=== PATIENT | female | born 1995 | race Caucasian/White ===

== ENCOUNTER 2016-05-18 22:01 | Outpatient (CLI) | payer OTHER ==
[~2016-05-18] VITALS: Ht 157.5 cm; Wt 68.9 kg
[2016-05-18 22:13] VITALS: Ht 157.5 cm; Wt 68.9 kg
[2016-05-18 22:14] VITALS: BP 117/70; PULSE 76; RESP 18
[2016-05-18] MEDS ORDERED: PREN1TAB31 PO (22:26)
--- NOTE | 2016-05-19 01:17 | HP ---
Date/Time of Note Date/Time of Note DATE: 05/19/16 TIME: 01:12 OB - History Hx of Present Free Text/Dictation OB Triage 21yo G1 at 39+4 presenting to triage with c/o painful UCs since AM. Pt reports normal FM, denies LOF or VB. Estimated Due Date: May 21, 2016 : 1 Care: Good Care Past Family/Social History * Past Medical, Surgical, Family and Obstetric Histories reviewed from chart. OB Admission Exam Vital Signs Vital Signs Vital Signs Date Time Temp Pulse Resp B/P Pulse Ox O2 Delivery O2 Flow Rate FiO2 05/18/16 22:14 98.9 76 18 117/70 Room Air Physical Exam Cervical Dilatation: 2cm Effacement: 50% Station: -2 Membranes: Intact Heart Rate: 130's Accelerations: Accelerations Present Decelerations: No Decelerations Varibility: Moderate Contractions on Admission: < 5 Minutes Apart OB Assessment/Plan Other Assessment: Early Labor at term with minimal cervical change on serial vaginal exams FWB reassuring Other plan: Pt appropriate for d/c home at this time Pt given strict labor, ROM and FKC instructions CRUZ LIRA MD May 19, 2016 01:17
[2016-05-20] MEDS ORDERED: IBUP-1542 PO (15:59)
== END 2016-05-19 01:17 | disposition home or self-care (01) ==
LOC: OBT 22:01 → L-D 22:02 → OBT 05-19 01:17
PROVIDERS: ATTEND Obstetrics & Gynecology
DX: O62.9 Abnormality of forces of labor, unspecified (principal); Z3A.39 39 weeks gestation of pregnancy
CPT/HCPCS: G0463

== ENCOUNTER 2016-05-19 05:13 | Inpatient (IN) | payer OTHER ==
[~2016-05-19] VITALS: Ht 157.5 cm; Wt 68.9 kg
[~2016-05-19 05:13] MED LIST: PREN1TAB31 PO
--- NOTE | 2016-05-19 05:37 | TRIAGE ---
OB Triage Datetime Report Generated by CPN: 05/19/2016 05:36 Datetime: 05/19/2016 23:16 Stage of : OB Triage Datetime: 05/19/2016 00:59 Vaginal Exam Dilatation (cms): 2.5 Effacement (%): 50 Station: -2 Datetime: 05/18/2016 23:16 Stage of : OB Triage Labor Evaluation Frequency: 4-6 Monitor Mode: External Duration (sec)2399: 40-70 Quality: Moderate Pattern: Normal: <= 5 Contractions in [address] [place]: Relaxed Heart Rate FHR Baseline Rate: 135 Monitor Mode: External US Variability: Moderate 6-25 bpm Accelerations: 15X15 Decelerations: None Category: Category I Datetime: 05/18/2016 22:33 Vaginal Exam Dilatation (cms): 1.5 Effacement (%): 50 Station: -2 Exam By: EM Membrane Status: Intact Datetime: 05/18/2016 22:16 Stage of : OB Triage Assessment Type: Triage Maternal Assessment Level of Consciousness: Fully Conscious DTR's/Clonus: DTRs 1+; No Clonus Headache: Denies Blurred Vision: No Respiratory Effort: Unlabored; Regular Rhythm; Equal Expansion Nausea/Vomiting: Denies RUQ Epigastric Pain: Denies Lower Extremities Edema: None Degree: None Upper Extremities Edema: None Degree: None Facial Edema: None Temperature Route: Oral Fall Risk Assessment History of Falling: (0) No Secondary Diagnosis: (0) No Ambulatory Aid: (0) Bedrest/Nurse Assist IV Therapy: (0) No Gait: (0) Normal/Bedrest/Immobile Mental Status: (0) Oriented to Own Ability Fall Score: 0 Fall Risk Score Definition: No Risk: No action required Pain Assessment Pain Scale: 7 Pain Presence: Intermittent Pain Type: Contraction Pain Location: Abdomen; Back Pain Goal: 2 Pain Relief Measures: Comfort Measures Datetime: 05/18/2016 22:09 Monitor Mode: External Resting Tone [place]: Relaxed Contraction Comments: MONITORS APPLIED Monitor Mode: External US Comments: MONITOR APPLIED Datetime: 05/18/2016 22:06 EGA: 39.4 Vaginal Discharge: Present Abdominal Trauma: Not Applicable Datetime: 05/18/2016 22:05 Time of Arrival: 05/18/2016 21:58 Arrived By: Wheelchair Arrived From: Emergency Dept Chief Complaint: UC'S Movement: Present Contractions: Regular Time Contractions Began: 05/18/2016 07:00 Contractions: 6 MIN Rupture of Membranes: Denies Vaginal Bleeding: Normal Show Vaginal Discharge: Present Recent Sexual Intercouse: Yes Abdominal Trauma: Not Applicable Patient Complaints: Contractions; Back Pain Time Provider Notified: 05/18/2016 23:04 Provider Notified: SORAYA Initial Plan: EFMVirgil GOMEZ
--- NOTE | 2016-05-19 05:45 | HP ---
Date/Time of Note Date/Time of Note DATE: 05/19/16 TIME: 05:42 OB - History Hx of Present Free Text/Dictation 21yo G1 at 39+5 presenting with painful UCs. Denies LOF or VB. Was 2-3cm when she left triage last night. records not available, however per pt, course has been uncomplicated. Estimated Due Date: May 21, 2016 Care: Good Care Obstetrical Complications: None Medical Complications: None Past Family/Social History * chart not available Blood Type: Unknown Rubella: unknown RPR/VDRL: Unknown GBS Status: Negative (obtained from [facility]) HBsAG: Unknown OB Admission Exam Vital Signs Vital Signs 119/71 78 Physical Exam HEENT: WNL Heart: Rhythm Normal Lungs: Clear Abdomen: WNL Extremities: Normal Cervical Dilatation: 6cm Effacement: 100% Station: Other (BBOW) Membranes: Intact Heart Rate: 130's Accelerations: Accelerations Present Decelerations: No Decelerations Varibility: Moderate Contractions on Admission: < 5 Minutes Apart OB Assessment/Plan Reason for admission: active labor Plan: Expectant Management Other plan: FWB overall reassuring Pain meds prn GBS ppx not indicated Anticipate CRUZ LIRA MD May 19, 2016 05:45
[2016-05-19] MEDS ORDERED: LACTATED RINGER'S 1,000 ML IV SCH (06:02)
[2016-05-19] MEDS ORDERED: BUTORPHANOL 2 MG INJ ONE (06:05)
[2016-05-19 06:13] VITALS: Ht 157.5 cm; Wt 68.9 kg
[2016-05-19 06:15] VITALS: BP 131/76; PULSE 90; RESP 17
[2016-05-19] MEDS ORDERED: MISOPROSTOL 200 MCG TAB PR PRN ×2 (06:30→16:00)
[2016-05-19] MEDS ORDERED: LACTATED RINGER'S 1,000 ML IV PRN (06:30)
[2016-05-19] MEDS ORDERED: CARBOPROST 250 MCG INJ IM PRN ×2 (06:30→16:00)
[2016-05-19] MEDS ORDERED: OXYTOCIN 30 UNITS/LR 500 ML IV PRN ×2 (06:30→16:00)
[2016-05-19] MEDS ORDERED: ACETAMINOPHEN/CODEINE #3 TAB PO PRN (06:30)
[2016-05-19] MEDS ORDERED: METHYLERGONOVINE 0.2 MG INJ IM PRN ×2 (06:30→16:00)
[2016-05-19] MEDS ORDERED: BUTORPHANOL 2 MG INJ IV PRN ×2 (06:30)
[2016-05-19] MEDS ORDERED: LIDOCAINE 1% (MPF) 30 ML INJ INJ PRN (06:30)
[2016-05-19] MEDS ORDERED: AMPICILLIN 2 GM/NS (PMX) 100 ML IV ONE (06:30)
[2016-05-19] MEDS ORDERED: IBUPROFEN 600 MG TAB PO PRN (06:30)
[2016-05-19 06:56] LABS: ADD SCAN DIFF NO
[2016-05-19 07:08] LABS: BASOPHILS % 0.1 % (0.0-2.0); HEMATOCRIT 33.1 % (37.0-47.0); HEMOGLOBIN 11.3 g/dl (12.0-16.0); LYMPHOCYTES # 1.1 10^3/ul (0.8-2.9); LYMPHOCYTES % 6.5 % (15.0-51.0); MEAN CORPUSCULAR HEMOGLOBIN 30.3 pg (29.0-33.0); MEAN CORPUSCULAR HGB CONC 34.1 g/dl (32.0-37.0); MEAN CORPUSCULAR VOLUME 88.7 fl (82.0-101.0); MEAN PLATELET VOLUME 10.4 fl (7.4-10.4); MONOCYTE # 0.5 10^3/ul (0.3-0.9); NEUTROPHIL # 15.8 10^3/ul (1.6-7.5); NEUTROPHILS % 89.4 % (39.0-77.0); PLATELET COUNT 339 10^3/UL (140-415); RED BLOOD COUNT 3.73 10^6/ul (4.20-5.40); RED CELL DISTRIBUTION WIDTH 14.2 % (11.5-14.5); WHITE BLOOD COUNT 17.6 10^3/ul (4.8-10.8)
[2016-05-19 07:09] LABS: INR 0.95; PROTIME 12.7 Sec (12.2-14.2)
[2016-05-19 07:10] LABS: PARTIAL THROMBOPLASTIN TIME 27.3 Sec (25.0-35.0)
[2016-05-19] MEDS ORDERED: FENTAnyl 2MCG/ML-ROPIV 0.2% 100 ML ONE (07:15)
--- NOTE | 2016-05-19 08:17 | RADRPT ---
PROCEDURE: Obstetrical ultrasound, limited. CLINICAL INDICATION: Pelvic pain. TECHNIQUE: Multiple sonographic images of the pelvis were obtained using transabdominal technique . Images were obtained with wang scale and color Doppler. The images were reviewed on a PACS works tation. COMPARISON: No prior studies are available for comparison. FINDINGS: There is a single living intrauterine gestation with the fetus in a vertex presentation. hear t tones of 143 beats per minute are identified. The placenta is anterior in location, grade 2. The re is no evidence of placenta previa or abruption. Measurements were made in order to determine age. The results are as follows: BPD =8.53 cm HC =31.24 cm AC =33.88 cm FL =7.21 cm. Estimated gestational age of approximately 36 weeks and 0 days. The estimated date of delivery is 06/16/2016. The EFW = 3049 +/- 457 grams. Estimated weight percentage equals 12.6%. IMPRESSION: Single viable intrauterine gestation of approximately 36 weeks and 0 days, with an ultrasound CADEN of 06/16/2016. .Julio Rich MD, MD Date Time Electronically viewed and signed by .Julio Rich MD, MD on 05/19/2016 08:17 .T/
--- NOTE | 2016-05-19 08:18 | RADRPT ---
PROCEDURE: Biophysical profile. CLINICAL INDICATION: Pelvic pain. TECHNIQUE: Multiple sonographic images of the pelvis were obtained with transabdominal technique. COMPARISON: No prior studies are available for comparison. FINDINGS: There is a single living intrauterine gestation with the fetus in a vertex position. The placenta i s anterior in location, grade II. heart tones of 144 beats per minute are identified. There i s normal amniotic fluid volume with an PAULINA of 12.0 cm. breathing movements = 2 Gross body movements = 2 tone = 2 Qualitative AFV = 2 IMPRESSION: Biophysical profile 8 out of 8. .Julio Rich MD, MD Date Time Electronically viewed and signed by .Julio Rich MD, MD on 05/19/2016 08:18 .T/
[2016-05-19] MEDS ORDERED: MINERAL OIL LIGHT 10 ML VIAL TOP ONE (08:30)
[2016-05-19 09:00] LABS: BARBITURATES Negative (NEGATIVE); BENZODIAZEPINES Negative (NEGATIVE); CANNABINOIDS Negative (NEGATIVE); COCAINE Negative (NEGATIVE)
[2016-05-19] MEDS ORDERED: FENTAnyl 2MCG/ML-ROPIV 0.2% 100 ML BAG EPI SCH (09:00)
[2016-05-19] MEDS ORDERED: NALOXONE (0.4 MG/ML) INJ IV PRN (09:00)
[2016-05-19 10:05] LABS: OPIATES Negative (NEGATIVE)
[2016-05-19] MEDS ORDERED: AMPICILLIN 1 GM/NS (PMX) 50 ML IV SCH (10:30)
[2016-05-19] MEDS ORDERED: OXYTOCIN 30 UNITS/LR 500 ML IV SCH (12:00)
[2016-05-19] MEDS ORDERED: DEXTROSE 5%-LR 1,000 ML IV SCH (13:30)
[2016-05-19] MEDS ORDERED: LACTATED RINGER'S 1,000 ML IV* SCH (15:50)
--- NOTE | 2016-05-19 15:50 | LDN ---
Date/Time of Note Date/Time of Note DATE: 05/19/16 TIME: 15:47 Delivery Summary Pt pushed to uncomplicated of liveborn male of 3350g with Apgars of 8/9. RT at delivery 2/2 light meconium. Placenta Delivered: Spontaneously Meconium: Light Perineum intact?: Yes Perineal laceration repair: L labial laceration Anesthesia type: Epidural Estimated blood loss: 300 Sponge & Needle done & correct: Yes All needle counts correct: Yes Any foreign bodies felt in the: No Problems: Delivery Information Sex Sex: male Apgars 1 Minute: 8 5 Minute: 9 Suctioning Nose & mouth suctioned at avi: No Delee suction performed: No Umbilical Cord Umbilical cord with: 3 Vessels Cord presentations: no nuchal cord Cord Blood was obtained: Yes Mother & Baby Disposition Disposition Mom & Baby to Maternity; Good: Yes Baby to NICU: No CRUZ LIRA MD May 19, 2016 15:50
[2016-05-19] MEDS ORDERED: DIBUCAINE 1% 30 GM OINT PR PRN (16:00)
[2016-05-19] MEDS ORDERED: BENZOCAINE 20% 56 ML SPRAY TOP PRN (16:00)
[2016-05-19] MEDS ORDERED: LANOLIN 7 GM TUBE TOP PRN (16:00)
[2016-05-19] MEDS ORDERED: ONDANSETRON 4 MG INJ IV PRN (16:00)
[2016-05-19] MEDS ORDERED: ACETAMINOPHEN 325 MG TAB PO PRN (16:00)
[2016-05-19] MEDS ORDERED: DIPHENHYDRAMINE 50 MG INJ IV PRN (16:00)
[2016-05-19 17:00] VITALS: BP 103/56; PULSE 106; RESP 18
[2016-05-19] MEDS: IBUPROFEN 600 MG TAB PO SCH ×2 (17:58→23:59)
[2016-05-19 20:00] VITALS: BP 108/65; PULSE 99; RESP 18
[2016-05-20] MEDS: IBUPROFEN 600 MG TAB PO SCH ×4 (01:57→23:44)
[2016-05-20 03:45] VITALS: BP 94/55; PULSE 77; RESP 18
[2016-05-20 07:54] LABS: ADD SCAN DIFF NO
[2016-05-20 07:59] LABS: BASOPHILS % 0.1 % (0.0-2.0); EOSINOPHILS % 0.2 % (0.0-7.0); HEMATOCRIT 27.1 % (37.0-47.0); HEMOGLOBIN 9.2 g/dl (12.0-16.0); LYMPHOCYTES # 2.3 10^3/ul (0.8-2.9); LYMPHOCYTES % 13.1 % (15.0-51.0); MEAN CORPUSCULAR HEMOGLOBIN 30.4 pg (29.0-33.0); MEAN CORPUSCULAR HGB CONC 33.9 g/dl (32.0-37.0); MEAN CORPUSCULAR VOLUME 89.4 fl (82.0-101.0); MONOCYTES % 5.5 % (0.0-11.0); NEUTROPHILS % 80.4 % (39.0-77.0); PLATELET COUNT 267 10^3/UL (140-415); RED BLOOD COUNT 3.03 10^6/ul (4.20-5.40); RED CELL DISTRIBUTION WIDTH 14.6 % (11.5-14.5); WHITE BLOOD COUNT 17.4 10^3/ul (4.8-10.8)
[2016-05-20 08:00] VITALS: BP 89/50; PULSE 79; RESP 17
[2016-05-20] MEDS: SENNA/DOCUSATE NA (8.6MG/50MG) TAB PO PRN (09:29)
--- NOTE | 2016-05-20 15:51 | DS ---
Date/Time of Note Date/Time of Note home next day DATE: 05/20/16 TIME: 15:50 Obstetrical Discharge Record Final Diagnosis Final Diagnosis: Term delivered Other Final Diagnosis S/P vaginal delivery Vaginal Delivery Obstetrical Delivery: Spontaneous, Laceration, Repaired Condition on Discharge Physical Assessment Last Vitals: see nurses notes Voiding: Yes Bowel Movement: Yes Breast: Soft, non-tender, Filling Fundus: Firm Abdomen and Incision: soft bs + Episiotomy: NA Calf Tenderness: No Patient Condition: Good SAMANTHA BOLDEN MD May 20, 2016 15:51
--- NOTE | 2016-05-20 15:58 | PD.PPDC ---
[employer] Discharge Instruction Provider Information Physician Information 21 y/o female had vaginal delivery Diagnosis Final Diagnosis: S/P vaginal delivery Condition Patient Condition: Good Diet Diet: Resume Regular Diet Activity/Restrictions Activity: Normal Activity May Shower Restrictions: Nothing in the Vagina Return to Work or School: Jul 08, 2016 Follow-up Follow-up with Physician: 4, Week/Weeks (in clinic) Return to clinic for OB Instructions: Breast Tenderness Depression SAMANTHA BOLDEN MD May 20, 2016 15:58
[2016-05-20] MEDS ORDERED: IBUP-1542 PO (15:59)
[2016-05-20 16:00] VITALS: BP 106/59; PULSE 106; RESP 18
[2016-05-20] MEDS: CEPHALEXIN 500 MG CAP PO SCH ×2 (18:09→23:44)
[2016-05-20 19:30] VITALS: BP 91/63; PULSE 100; RESP 17
[2016-05-21 04:00] VITALS: BP 102/52; PULSE 73; RESP 18
[2016-05-21] MEDS: IBUPROFEN 600 MG TAB PO SCH ×2 (05:37→12:18)
[2016-05-21] MEDS: CEPHALEXIN 500 MG CAP PO SCH ×2 (05:37→12:17)
[2016-05-21 08:00] VITALS: BP 111/76; PULSE 69; RESP 18
[2016-05-21 08:21] LABS: ADD SCAN DIFF NO
[2016-05-21 08:31] LABS: BASOPHILS % 0.3 % (0.0-2.0); EOSINOPHILS # 0.1 10^3/ul (0.0-0.5); EOSINOPHILS % 1.2 % (0.0-7.0); HEMATOCRIT 27.3 % (37.0-47.0); HEMOGLOBIN 9.3 g/dl (12.0-16.0); LYMPHOCYTES # 2.5 10^3/ul (0.8-2.9); LYMPHOCYTES % 22.3 % (15.0-51.0); MEAN CORPUSCULAR HEMOGLOBIN 30.8 pg (29.0-33.0); MEAN CORPUSCULAR HGB CONC 34.1 g/dl (32.0-37.0); MEAN CORPUSCULAR VOLUME 90.4 fl (82.0-101.0); MEAN PLATELET VOLUME 10.1 fl (7.4-10.4); MONOCYTE # 0.8 10^3/ul (0.3-0.9); MONOCYTES % 7.2 % (0.0-11.0); NEUTROPHIL # 7.6 10^3/ul (1.6-7.5); NEUTROPHILS % 68.1 % (39.0-77.0); PLATELET COUNT 317 10^3/UL (140-415); RED BLOOD COUNT 3.02 10^6/ul (4.20-5.40); RED CELL DISTRIBUTION WIDTH 14.6 % (11.5-14.5); WHITE BLOOD COUNT 11.2 10^3/ul (4.8-10.8)
[2016-05-21] MEDS ORDERED: DIPHTH/TET/ACEL PERTUSS (ADULT) 0.5 ML VIAL IM* ONE (09:00)
[2016-05-21] MEDS: SENNA/DOCUSATE NA (8.6MG/50MG) TAB PO PRN (11:17)
== END 2016-05-21 14:58 | disposition home or self-care (01) | DRG 775 ==
LOC: OBT 05:13 → L-D 05:13 → OBT 05:39 → L-D 05:40 → PP1 17:01
PROVIDERS: ADMIT Obstetrics & Gynecology; ATTEND Obstetrics & Gynecology
PROC: 10E0XZZ Delivery of Products of Conception, External Approach (ICD-10-PCS; principal; 2016-05-19)
PROC: 0UQMXZZ Repair Vulva, External Approach (ICD-10-PCS; 2016-05-19)
DX: O70.0 First degree perineal laceration during delivery (principal); Z37.0 Single live birth; Z3A.39 39 weeks gestation of pregnancy
CPT/HCPCS: 62319; 76815; 76818; 80307; 85025; 85610; 85730; 86592; 86900; 86901; 87340; 90715; 99464; J0290; J2590; J3010; J7120; J7121